=== PATIENT | male | born 1950 | race Two or more races ===

== ENCOUNTER 2024-07-03 17:51 | Emergency (ER) | payer OTHER ==
[~2024-07-03] VITALS: Ht 170.2 cm; Wt 81.6 kg
[2024-07-03] MEDS ORDERED: DAFLONEX-XL 11300 MG PO (18:39)
[2024-07-03] MEDS ORDERED: AMLODIPINE-OLM1 EAC2 PO (18:40)
[2024-07-03] MEDS ORDERED: ZESTRIL20 MG PO (18:40)
[2024-07-03] MEDS ORDERED: CHILDREN'S ASPI81 MG PO (18:40)
[2024-07-03] MEDS ORDERED: GUAIFEN/DEXTROMETHORPHAN/PE 10 ML BLIST.PACK PO STA (20:47)
[2024-07-03] MEDS ORDERED: GUAIFEN/DEXTROMETHORPHAN/PE 10 ML BLIST.PACK PO ONE (21:08)
[2024-07-03 21:56] LABS: HEMATOCRIT 45.7 % (39.0-48.0); HEMOGLOBIN 15.8 g/dL (13-16.00); MEAN CELL VOLUME 93.9 fL (80.0-100.00); MEAN CORPUSCULAR HEMOGLOBIN 32.4 pg (27.00-32.0); MEAN CORPUSCULAR HGB CONC 34.5 g/dl (32.0-36.0); PLATELET COUNT 148 K/uL (150-450); RED BLOOD COUNT 4.87 M/uL (4.00-6.00); RED CELL DISTRIBUTION WIDTH 12.9 % (11.5-14.5)
[2024-07-03] MEDS ORDERED: ACETAMINOPHEN500 M1 PO (23:27)
[2024-07-03] MEDS ORDERED: GILTUSS COUGH-118 M1 PO (23:27)
[2024-07-03 23:33] LABS: COVID-19 AG NEGATIVE (NEGATIVE)
[2024-07-03 23:41] LABS: INFLUENZA A AG NEGATIVE (NEGATIVE)
== END 2024-07-04 00:24 | disposition home or self-care (01) ==
LOC: ER 17:52
PROVIDERS: Preventive Medicine Public Health & General Preventive Medicine
DX: B34.9 Viral infection, unspecified (principal); R53.81 Other malaise; I10 Essential (primary) hypertension; Z20.822 Contact with and (suspected) exposure to COVID-19